=== PATIENT | male | born 1950 | race Caucasian/White ===

== ENCOUNTER → 2018-10-02 | Outpatient (CLI) | payer OTHER, SELFPAY ==
[~2018-10-02] VITALS: Ht 177.8 cm; Wt 96.2 kg
[~2018-10-02] MED LIST: ALBUMIN (HUMAN) 25% 200 ML IV SCH
[2018-10-02 08:31] LABS: BASOPHILS % (AUTO) 0.4 % (0.0-5.0); EOSINOPHILS % (AUTO) 0.3 % (0.0-8.0); HEMATOCRIT 50.3 % (42-54); LYMPHOCYTES % (AUTO) 47.1 % (21.0-51.0); MEAN CORPUSCULAR HEMOGLOBIN 29.2 pg (27.0-33.0); MEAN CORPUSCULAR HGB CONC 33.4 g/dL (32.0-36.0); MEAN CORPUSCULAR VOLUME 87.4 fL (79-99); MONOCYTES % (AUTO) 5.9 % (3.0-13.0); NEUTROPHILS % (AUTO) 46.3 % (40.0-77.0); NUCLEATED RED BLOOD CELLS 0.8 % (0.0-0.19); PLATELET COUNT (AUTO) 189 K/uL (130-400); RED BLOOD CELL COUNT(AUTO) 5.75 MIL/uL (4.50-6.20); RED CELL DISTRIBUTION WIDTH 16.4 % (11.0-15.5); WHITE BLOOD COUNT (AUTO) 18.6 K/uL (4.8-10.8)
[2018-10-02 08:37] LABS: INR 1.37 (0.85-1.15); PROTHROMBIN TIME 14.3 SEC (9.6-11.6)
[2018-10-02 08:39] LABS: ALBUMIN 2.5 g/dL (3.5-5.0); CREATININE 1.1 mg/dL (0.5-1.5); POTASSIUM 5.8 mmol/L (3.5-5.1); TOTAL PROTEIN, SERUM 8.3 g/dL (6.0-8.3)
--- NOTE | 2018-10-02 09:00 | NUR ---
U/S GD PARACENTESIS PROCEDURE PERFORMED BY DR GALINDO. PUNCTURE SITE RIGHT LOWER QUADRANT AND PATIENT TOLERATED PROCEDURE WELL. TOTAL REMOVED 6.0 LITERS OF CLOUDY YELLOW ASCITES FLUID. END OF PROCEDURE AT 0930. CATHETER REMOVED AND DRESSING APPLIED. NO BLEEDING NOTED. SPECIMEN SENT TO LAB. ALBUMIN 25% 50 GRAMS INFUSION GIVEN IV PER MD ORDERS. PT TOLERATED WELL. DISCHARGE INSTRUCTIONS GIVEN TO PATIENT AND VERBALIZED UNDERSTANDING. DISCHARGED AMBULATORY, STABLE, AAO X3 WITH NO C/O PAIN.
[2018-10-02 13:32] LABS: ALBUMIN,BODY FLUID 0.7 g/dL
[2018-10-02 13:43] LABS: APPEARANCE BODY FLUID CLEAR (CLEAR); BODY FLUID WBC 165 /cu. mm.; COLOR,BODY FLUID YELLOW (LT YELLOW); SPECIMENTYPE,BODY FLUID ASCITES; TOTAL VOLUME,BODY FLUID 6000 mL
[2018-10-02 13:44] LABS: BODY FLUID RBC 475 /cu. mm.
[2018-10-02 14:11] LABS: BF LYMPHOCYTE 54 %; BF MESOTHELIAL 36 %
== END | disposition home or self-care (01) ==
LOC: RAH 07:55
PROVIDERS: ATTEND Internal Medicine Gastroenterology
DX: R18.8 Other ascites (principal); K74.60 Unspecified cirrhosis of liver
CPT/HCPCS: 36415; 49083; 80053; 82042; 84157; 85025; 85610; 87071; 87205; 88108; 88305; 89051; 96365; A4215; P9046